=== PATIENT | male | born 1935 | race Caucasian/White ===

== ENCOUNTER 2018-07-21 17:59 | Emergency (ER) | payer OTHER ==
--- NOTE | 2018-07-21 18:48 | PDOC ---
History of Present Illness - General Chief Complaint: Burn Stated Complaint: Burn - History of Present Illness Initial Comments: Ana Maria Ovalle is an 82yo man with a PMH of HTN and non-Parkinson's movement disorder who presents with partial thickness mondragon to the b/l feet including the soles. He reports that the mondragon occurred 3 days ago on Thursday in the shower. He tried to turn the hot water down, but he accidentally turned the cold water completely off and had only hot water over his feet. He initially refused to go to see a doctor. Per family at bedside, Mr Ovalle's son called his PMD and silvadene was prescribed. Mr Ovalle reports that he has put it on the mondragon twice. He presented to the ED by ambulance today because family came to visit and thought he needed to have the mondragon evaluated by a doctor. Past History - Past Medical History Allergies/Adverse Reactions: Allergies Allergy/AdvReac Type Severity Reaction Status Date / Time Penicillins Allergy Unknown Verified 08/30/16 17:12 Home Medications: Ambulatory Orders Alprazolam [Xanax] 0 mg PO TID PRN 08/30/16 Aspirin [ASA -] 81 mg PO DAILY 08/30/16 Allopurinol 300 mg PO 09/01/16 Amlodipine Besylate [Norvasc -] 5 mg PO DAILY 09/01/16 Levofloxacin [Levaquin] 500 mg PO DAILY #2 tablet 09/03/16 Anemia: Yes Disorders: Yes (BPH, frq) HTN: Yes Psychiatric Problems: Yes (ANXIETY.) - Surgical History Abdominal Surgery: Yes Cholecystectomy: Yes Lung Surgery: Yes (?RT LUNG SX.) - Suicide/Smoking/Psychosocial Hx Smoking History: Never smoked Hx Alcohol Use: No Drug/Substance Use Hx: No Substance Use Type: None Hx Substance Use Treatment: No Review of Systems - Review of Systems Comments:: General: No fevers, no chills, no weight or appetite change, no malaise HEENT: No changes in vision, no changes in hearing, no congestion, no sore throat CV: No chest pain, no palpitations, no LE edema Pulm: No SOB, no cough, no wheezing GI: No nausea or vomiting, no change in bowel habits, no melena : No frequency, no urgency, no dysuria Musc: See HPI Skin: See HPI Endo: No excessive thirst, no heat/cold intolerance Heme: No unusual bruising or bleeding, no swollen glands Neuro: No syncope, no numbness/tingling, no focal weakness Vasc: No claudication Psych: No recent change in mood, no SI or HI *Physical Exam - Physical Exam Comments: General: Comfortable, no acute distress HEENT: PERRL, EOMI, MMM, voice normal, normal neck ROM, no LAD Cards: RRR, no murmur appreciated Pulm: Comfortable on room air, clear to auscultation bilaterally Abd: Soft, nontender, nondistended Ext: BLE 2+ pitting edema B/L feet with partial thickness mondragon, approximately 2% per foot (4-5% burn total). Large intact blisters filled with serous fluid to lateral right foot and medial left foot. Unroofed blisters with beefy red base to medial right and lateral left foot. Mondragon include both dorsal and plantar surfaces of b/l feet. Thin strip of unburned tissue in the middle of each sole prevents mondragon from being circumferential. Vasc: Extremities WWP. Neuro: A&Ox3, CN grossly intact, normal speech, motor/sensory grossly intact and symmetric Psych: Mood appropriate to situation Medical Decision Making - Medical Decision Making 07/21/18 19:45 Ana Maria Ovalle is an 82yo man with a history of HTN and movement disorder who presents with partial thickness mondragon to the b/l feet, including the soles, that total approximately 4% TBSA. - Patient is unable to walk as the mondragon include the soles of both feet. - Call placed to [facility] [place] - Given location of mondragon, may need specialized burn care. Concern that wound care at [facility] may not be comfortable caring for mondragon. - Spoke to Dr Morales at [facility]. Will accept for transfer. Would like feet wrapped in moist gauze for transfer - Oxycodone/acetaminophen ordered for pain. Seen and discussed with Dr Yu. Una Ricks PGY1 *DC/Admit/Observation/Transfer Diagnosis at time of Disposition: Partial thickness burn - Discharge Dispostion Disposition: TRANSFER ACUTE CARE/OTHER HOSP Condition at time of disposition: Stable - Referrals Referrals: Hunter Barrett [Primary Care Provider] - - Patient Instructions - Post Discharge Activity - Transfer to Acute Care Facility Receiving Facility: [facility]. Accepting Physician:: Dr Morales
[2018-07-21 19:48] VITALS: BMI 26.5
[2018-07-21] MEDS ORDERED: DIPHTH,PERTUSS(ACELL),TET 0.5 ML DISP.SYRIN IM ONE ×2 (20:08→20:30)
[2018-07-21] MEDS ORDERED: SODIUM CHLORIDE 0.9% 500 ML INFUS.BAG IV ONE (20:16)
--- NOTE | 2018-07-21 20:17 | PDOC ---
Attending Attestation - Resident Resident Name: MillicentUna - ED Attending Attestation I have performed the following: I have examined & evaluated the patient, The case was reviewed & discussed with the resident, I agree w/resident's findings & plan - HPI HPI: 07/21/18 20:13 82YOM, with a significant past medical history of HTN and Parkinsons, who presents to the emergency department with, bilateral feet mondragon from hot water. Allergies: Penicillins. Primary Care Physician: Dr. Barrett - Physicial Exam PE: 07/21/18 20:13 agree with PE as documented of note, <5% bilateral foot mondragon with 2nd degree mixed blisters and open wounds. erythematous and tender, no purulence, but serosanguinous discharge. over dorsum, lateral and medial feet. mildly tender. 2+ pulses. THOMAS CELESTE - Medical Decision Making 07/21/18 20:14 82 YOM with Parkinsons, HTN presenting with 2nd degree foot mondragon bilaterally, noncircumferential. <5% tetanus updated. xeroform and dressings placed needs burn cs and wound care, admission and transfer to center with subspecialty care, [facility] accepted, burn surgeon notified. basic labs, IV insert and analgesia administered awaiting transfer to [facility] for further care and admit 07/21/18 20:16
[2018-07-21 20:59] VITALS: BP 154/68; PULSE 99; TEMP 98.1
== END 2018-07-21 20:40 | disposition short-term general hospital (02) ==
LOC: JER 17:59 → EDBD 17:59 → JER 20:40
PROC: 3E0234Z Introduction of Serum, Toxoid and Vaccine into Muscle, Percutaneous Approach (ICD-10-PCS; principal; 2018-07-21)
PROC: 2W2TX4Z Dressing of Left Foot using Bandage (ICD-10-PCS; 2018-07-21)
PROC: 2W2SX4Z Dressing of Right Foot using Bandage (ICD-10-PCS; 2018-07-21)
DX: T25.022A Burn of unspecified degree of left foot, initial encounter (principal); T25.021A Burn of unspecified degree of right foot, initial encounter; X11.0XXA Contact with hot water in bath or tub, initial encounter; Y93.E1 Activity, personal bathing and showering; Y92.002 Bathroom of unspecified non-institutional (private) residence as the place of occurrence of the external cause; I10 Essential (primary) hypertension; N40.0 Benign prostatic hyperplasia without lower urinary tract symptoms; F41.9 Anxiety disorder, unspecified
CPT/HCPCS: 90715; 99282-25; 99283-25

== ENCOUNTER 2019-03-28 03:55 | Emergency (ER) | payer BC, OTHER ==
--- NOTE | 2019-03-28 04:27 | PDOC ---
History of Present Illness - General Chief Complaint: Injury Stated Complaint: FALL Time Seen by Provider: 03/28/19 04:26 - History of Present Illness Initial Comments: 03/28/19 04:26 Mr. Ovalle is an 83 yo male w/ pmh of HTN, anxiety, prostate issues, parkinson's disorder who presents from [place] after being found down earlier this evening. Mechanism of fall unclear and patient reporting headache at this time. Patient cannot elicit why he fell at this time. The patient denies chest pain and shortness of breath. Denies fever, chills, nausea, vomit, diarrhea and constipation. Denies dysuria, frequency, urgency and hematuria. Past History - Past Medical History Allergies/Adverse Reactions: Allergies Allergy/AdvReac Type Severity Reaction Status Date / Time Penicillins Allergy Unknown Verified 03/28/19 04:23 Home Medications: Ambulatory Orders Levofloxacin [Levaquin] 500 mg PO DAILY #2 tablet 09/03/16 L. Acidophilus/L.bulgaricus [Lactobacillus Tablet] 1 each PO BID 03/28/19 Multivitamins [Tab-A-Vit -] 1 tab PO DAILY 03/28/19 Oxybutynin Chloride [Ditropan -] 5 mg PO BID 03/28/19 Sulfamethoxazole/Trimethoprim [Bactrim Ds -] 1 tab PO BID #14 tablet 03/28/19 Temazepam [Restoril] 15 mg PO HS 03/28/19 Thiamine HCl [Vitamin B1] 100 mg PO DAILY 03/28/19 Anemia: Yes COPD: No Disorders: Yes (BPH, frq) HTN: Yes Psychiatric Problems: Yes (ANXIETY.) - Surgical History Abdominal Surgery: Yes Cholecystectomy: Yes Lung Surgery: Yes (?RT LUNG SX.) - Suicide/Smoking/Psychosocial Hx Smoking History: Unknown if ever smoked Have you smoked in the past 12 months: No Hx Alcohol Use: No Drug/Substance Use Hx: No Substance Use Type: None Hx Substance Use Treatment: No Review of Systems - Review of Systems Comments:: 03/28/19 04:27 GENERAL/CONSTITUTIONAL: No fever or chills. No weakness. HEAD, EYES, EARS, NOSE AND THROAT: +Headache s/p fall. No change in vision. No ear pain or discharge. No sore throat. CARDIOVASCULAR: No chest pain or shortness of breath RESPIRATORY: No cough, wheezing, or hemoptysis. GASTROINTESTINAL: No nausea, vomiting, diarrhea or constipation. GENITOURINARY: No dysuria, frequency, or change in urination. MUSCULOSKELETAL: No joint or muscle swelling or pain. No neck or back pain. SKIN: No rash NEUROLOGIC: No headache, vertigo, loss of consciousness, or change in strength/ sensation. ENDOCRINE: No increased thirst. No abnormal weight change HEMATOLOGIC/LYMPHATIC: No anemia, easy bleeding, or history of blood clots. ALLERGIC/IMMUNOLOGIC: No hives or skin allergy. *Physical Exam - Vital Signs Last Vital Signs Temp Pulse Resp BP Pulse Ox 98.2 F 95 H 16 142/73 97 03/28/19 04:00 03/28/19 04:00 03/28/19 04:00 03/28/19 04:00 03/28/19 04:00 - Physical Exam Comments: 03/28/19 04:27 GENERAL: Awake, alert, and fully oriented, in no acute distress HEAD: +Hematoma noted to forehead c/w history. EYES: PERRLA, EOMI, sclera anicteric, conjunctiva clear ENT: Auricles normal inspection, hearing grossly normal, nares patent, oropharynx clear without exudates. Moist mucosa NECK: Normal ROM, supple, no lymphadenopathy, JVD, or masses LUNGS: No distress, speaks full sentences, clear to auscultation bilaterally HEART: Regular rate and rhythm, normal S1 and S2, no murmurs, rubs or gallops, peripheral pulses normal and equal bilaterally. ABDOMEN: Soft, nontender, normoactive bowel sounds. No guarding, no rebound. No masses EXTREMITIES: Normal inspection, Normal range of motion, no edema. No clubbing or cyanosis. NEUROLOGICAL: Cranial nerves II through XII grossly intact. Normal speech, normal gait, no focal sensorimotor deficits SKIN: Warm, Dry, normal turgor, no rashes or lesions noted. ED Treatment Course - LABORATORY CBC & Chemistry Diagram: 03/28/19 05:31 03/28/19 05:31 Medical Decision Making - Medical Decision Making 03/28/19 05:19 Mr. Ovalle is an 83 yo male w/ pmh as described who presents for evaluation s/p unexplained fall. Patient will be evaluated for causes for and sequelae of fall w/ labs and CT. Patient further workup pending at this time. 03/28/19 06:10 Patient noted to have florid UTI as below. Patient started on bactrim for treatment in ED and Rx sent to patient pharmacy. 03/28/19 06:[address] negative. Discharging to home for further outpatient evaluation as needed. Laboratory Results - last 24 hr 03/28/19 03/28/19 03/28/19 05:31 05:31 05:31 WBC 7.7 RBC 4.54 Hgb 9.5 L Hct 29.2 L MCV 64.3 L MCH 20.9 L MCHC 32.5 RDW 20.0 H Plt Count 139 D MPV 8.5 Absolute Neuts (auto) 4.4 Neutrophils % 57.2 Lymphocytes % 31.5 D Monocytes % 8.0 Eosinophils % 2.6 Basophils % 0.7 Nucleated RBC % 0 PT with INR 13.20 H INR 1.12 H PTT (Actin FS) 32.5 Sodium 143 Potassium 4.1 Chloride 110 H Carbon Dioxide 29 Anion Gap 4 L BUN 26.6 H Creatinine 1.1 Est GFR (CKD-EPI)AfAm 72.07 Est GFR (CKD-EPI)NonAf 62.19 Random Glucose 102 Calcium 9.5 Total Bilirubin 0.6 AST 6 L ALT 13 Alkaline Phosphatase 80 Total Protein 6.4 Albumin 3.0 L Urine Color Urine Appearance Urine pH Ur Specific [place] Urine Protein Urine Glucose (UA) Urine Ketones Urine Blood Urine Nitrite Urine Bilirubin Urine Urobilinogen Ur Leukocyte Esterase Urine WBC (Auto) Urine RBC (Auto) Urine Casts (Auto) U Epithel Cells (Auto) Urine Bacteria (Auto) 03/28/19 05:50 WBC RBC Hgb Hct MCV MCH MCHC RDW Plt Count MPV Absolute Neuts (auto) Neutrophils % Lymphocytes % Monocytes % Eosinophils % Basophils % Nucleated RBC % PT with INR INR PTT (Actin FS) Sodium Potassium Chloride Carbon Dioxide Anion Gap BUN Creatinine Est GFR (CKD-EPI)AfAm Est GFR (CKD-EPI)NonAf Random Glucose Calcium Total Bilirubin AST ALT Alkaline Phosphatase Total Protein Albumin Urine Color Yellow Urine Appearance Cloudy Urine pH 7.0 Ur Specific [place] 1.012 Urine Protein 1+ H Urine Glucose (UA) Negative Urine Ketones Negative Urine Blood 2+ H Urine Nitrite Negative Urine Bilirubin Negative Urine Urobilinogen 0.2 Ur Leukocyte Esterase 3+ H Urine WBC (Auto) 589 Urine RBC (Auto) 32 Urine Casts (Auto) 3 U Epithel Cells (Auto) 0.1 Urine Bacteria (Auto) 20.8 *DC/Admit/Observation/Transfer Diagnosis at time of Disposition: Fall Qualifiers: Encounter type: initial encounter Qualified Code(s): W19.XXXA - Unspecified fall, initial encounter UTI (urinary tract infection) Qualifiers: Urinary tract infection type: site unspecified Hematuria presence: without hematuria Qualified Code(s): N39.0 - Urinary tract infection, site not specified - Prescriptions Prescriptions: Sulfamethoxazole/Trimethoprim [Bactrim Ds -] 1 tab PO BID #14 tablet - Referrals Referrals: Garcia Don MD [Primary Care Provider] - - Patient Instructions Printed Discharge Instructions: How to Prevent Falls Additional Instructions: Ana Maria was evaluated today in the ER and found to have a UTI. We started him on antibiotics and sent a prescription to his pharmacy. Please take all medications as proscribed. Follow-up with primary care provider later this week for further evaluation. Return to ER if any fever, chills, altered mental status , or other concerning symptoms. - Post Discharge Activity
--- NOTE | 2019-03-28 04:34 | PDOC ---
Attending Attestation - Resident Resident Name: Stephen Everett - ED Attending Attestation I have performed the following: I have examined & evaluated the patient, The case was reviewed & discussed with the resident, I agree w/resident's findings & plan - HPI HPI: 03/28/19 05:29 Pt fell at the NH and she has hematoma to the right forehead. He has no complaints other than right head pain. Pt has no cspine pain. Pt has no other complaints. Moving all extremities. Pt speaks in telugu and answers questions appropriately; however at times he speaks in norwegian. - Physicial Exam PE: 03/28/19 05:31 Agree with resident exam. Pt has a hematoma/red area where his right forehead struck the floor. - Medical Decision Making 03/28/19 05:[address] head and c spine and we will send basic labs and UA and if all is well he will return to the [place],
[2019-03-28] MEDS ORDERED: ACETAMINOPHEN 1000 MG/100 ML VIAL (NON FORMULARY) IVPB ONE (04:56)
[2019-03-28 04:58] VITALS: TEMP 98.2; BMI 25.0
[2019-03-28] MEDS ORDERED: ACETAMINOPHEN INJECTION 100 ML IVPB ONE (05:20)
[2019-03-28 05:46] LABS: BASO % 0.7 % (0-2.0); HEMATOCRIT 29.2 % (35.4-49); HEMOGLOBIN 9.5 GM/dL (11.7-16.9); MEAN CELL VOLUME 64.3 fl (80-96); WHITE BLOOD COUNT 7.7 K/mm3 (4.0-10.0)
[2019-03-28 05:58] LABS: INR 1.12 (0.83-1.09); PROTHROMBIN TIME (PATIENT) 13.2 SEC (9.7-13.0)
[2019-03-28 06:01] LABS: ACTIVATED PTT 32.5 SECONDS (25.2-36.5)
[2019-03-28 06:02] LABS: EPI CELLS 0.1 /HPF (0-5/HPF); HYALINE CASTS 3 /lpf (0-8); URINE APPEARANCE CLOUDY; URINE BACTERIA 20.8 /hpf (NEGATIVE); URINE BILIRUBIN NEGATIVE (NEGATIVE); URINE COLOR YELLOW; URINE GLUCOSE (UA) NEGATIVE (NEGATIVE); URINE KETONE NEGATIVE (NEGATIVE); URINE LEUK ESTERASE 3+ (NEGATIVE); URINE NITRITE NEGATIVE (NEGATIVE); URINE PROTEIN 1+ (NEGATIVE); URINE RBC 32 /hpf (0-4); URINE UROBILINOGEN 0.2 mg/dL (0.2-1.0); URINE WBC 589 /hpf (0-5)
[2019-03-28 06:03] LABS: EOS % 2.6 % (0-4.5); LYMPH % 31.5 % (8-40); MCH 20.9 pg (25.7-33.7); MCHC 32.5 g/dl (32.0-35.9); MEAN PLT VOLUME 8.5 fl (7.5-11.1); NEUT % 57.2 % (42.8-82.8); PLATELET COUNT 139 K/MM3 (134-434); RBC 4.54 M/mm3 (4.00-5.60)
[2019-03-28] MEDS ORDERED: SULFAMETHOXAZOLE/TRIMETHOPRIM 800MG/160MG D.S. TABLET PO ONE (06:08)
[2019-03-28 06:09] LABS: ALK PHOS 80 U/L (45-117); ANION GAP 4 MMOL/L (8-16); BILIRUBIN,TOTAL 0.6 mg/dL (0.2-1); BLOOD UREA NITROGEN 26.6 mg/dL (7-18); CALCIUM 9.5 mg/dL (8.5-10.1); CHLORIDE 110 mmol/L (98-107); CO2 29 mmol/L (21-32); CREATININE 1.1 mg/dL (0.55-1.3); GLUCOSE,RANDOM 102 mg/dL (74-106); POTASSIUM 4.1 mmol/L (3.5-5.1); SGOT/AST 6 U/L (15-37); SGPT/ALT 13 U/L (13-61); SODIUM 143 mmol/L (136-145); TOT PROT 6.4 g/dl (6.4-8.2)
[2019-03-28] MEDS ORDERED: SULFAMETHOXAZOLE/TRIMETHOPRIM 800MG/160MG D.S. TABLET ONE (06:59)
[2019-03-28 08:40] VITALS: PULSE 88
[2019-03-28 09:47] VITALS: BP 159/68
--- NOTE | 2019-03-28 11:50 | EKG ---
Test Reason : Blood Pressure : / mmHG Vent. Rate : 087 BPM Atrial Rate : 087 BPM P-R Int : 202 ms QRS Dur : 088 ms QT Int : 336 ms P-R-T Axes : 060 -06 027 degrees QTc Int : 404 ms NORMAL SINUS RHYTHM INFERIOR INFARCT , AGE UNDETERMINED ABNORMAL ECG WHEN COMPARED WITH ECG OF 30-AUG-2016 17:19, NO SIGNIFICANT CHANGE WAS FOUND Confirmed by ROWENA MCFARLAND MD ([id number]) on 03/28/2019 11:50:00 AM Referred By: Confirmed By:ROWENA MCFARLAND MD
[2019-03-28 14:51] LABS: ANISOCYTOSIS 1+; MACROCYTOSIS 0; OVALOCYTE 1+; PLATELET ESTIMATE DECREASED
== END 2019-03-28 08:39 ==
LOC: JER 03:55
DX: N39.0 Urinary tract infection, site not specified (principal); R51 Headache; W19.XXXA Unspecified fall, initial encounter; Y93.89 Activity, other specified; Y92.122 Bedroom in nursing home as the place of occurrence of the external cause; Y99.8 Other external cause status; I10 Essential (primary) hypertension; F41.9 Anxiety disorder, unspecified; G20 Parkinson's disease; D64.9 Anemia, unspecified; N40.0 Benign prostatic hyperplasia without lower urinary tract symptoms
CPT/HCPCS: 36415; 70450-TC; 72125-TC; 80053; 81003; 82550; 84484; 85025; 85610; 85730; 87086; 93005; 93010; 99283-25; J0131

== ENCOUNTER 2019-06-11 22:34 | Emergency (ER) | payer BC, OTHER ==
--- NOTE | 2019-06-11 22:43 | PDOC ---
History of Present Illness - General Stated Complaint: R/O STROKE Time Seen by Provider: 06/11/19 22:42 History Source: Patient Exam Limitations: No Limitations - History of Present Illness Initial Comments: 06/11/19 23:52 Sources: Pt, Dr. Don, [place] Nurse HPI: 83yo M presenting from [place] for hypertensive episode (no HTN at baseline) with L arm 200/110, R arm 50 pts lower, with dizziness during episode. Sent in by patient PCP for head CT to r/o bleed. Given 5mg lisinopril with resolution of his hypertension. Patient without complaint on arrival - says his left arm hurts with use and has been a chronic pain for the past 3 years. He has had difficulty lifting his legs (L more than R) for two years. Denies any new focal deficits - no weakness / numbness / tingling / difficulty chewing or speaking. Main complaints is an infection in his left eye for which he is taking antibiotic eye drops. Denies chest pain, difficulty breathing, cough, fevers, chills, nausea / vomiting, pain with urination (multiple prior UTIs per chart review) All: PCNs MedS: per chart PMH: per chart PSH: per chart Shx: lives in [place] NIH Stroke Scale - Initial Evaluation Level of consciousness: Alert Ask patient the month and their age: Answers both correctly Ask patient to open & close eyes; make fist and let go: Obeys both correctly Best gaze (horizontal eye movement): Normal Visual field testing: No visual field loss Facial paresis (Show teeth/raise eyebrows/close eyes tight): Normal symmetrical movement Motor Function: Left Arm: Normal Motor Function: Right Arm: Normal (extends arm 90 (or 45) degrees for 10 seconds without drift Motor Function: Left Leg: Drift Motor Function: Right Leg: Normal (extends leg 30 degrees for 5 seconds without drift) Limb Ataxia: No ataxia Sensory(Use pinprick test arms,legs,trunk,face/side to side): Normal Best language (Describe picture, name items, read sentences): No Aphasia Dysarthria (read several words): Normal articulation Extinction and Inattention: No abnormality (patient with chronic LE weakness L > R) - Total Score NIH Stroke Scale Score: 1 Past History - Travel Traveled outside of the country in the last 30 days: No Close contact w/someone who was outside of country & ill: No - Past Medical History Allergies/Adverse Reactions: Allergies Allergy/AdvReac Type Severity Reaction Status Date / Time Penicillins Allergy Unknown Verified 06/11/19 22:53 Home Medications: Ambulatory Orders Levofloxacin [Levaquin] 500 mg PO DAILY #2 tablet 09/03/16 L. Acidophilus/L.bulgaricus [Lactobacillus Tablet] 1 each PO BID 03/28/19 Multivitamins [Tab-A-Vit -] 1 tab PO DAILY 03/28/19 Oxybutynin Chloride [Ditropan -] 5 mg PO BID 03/28/19 Sulfamethoxazole/Trimethoprim [Bactrim Ds -] 1 tab PO BID #14 tablet 03/28/19 Temazepam [Restoril] 15 mg PO HS 03/28/19 Thiamine HCl [Vitamin B1] 100 mg PO DAILY 03/28/19 Anemia: Yes COPD: No Disorders: Yes (BPH, frq) HTN: Yes Psychiatric Problems: Yes (ANXIETY.) - Surgical History Abdominal Surgery: Yes Cholecystectomy: Yes Lung Surgery: Yes (?RT LUNG SX.) - Psycho Social/Smoking Cessation Hx Smoking History: Never smoked Have you smoked in the past 12 months: No Hx Alcohol Use: No Drug/Substance Use Hx: No Substance Use Type: None Hx Substance Use Treatment: No Review of Systems - Review of Systems Able to Perform ROS?: Yes Is the patient limited Cook Islander proficient: Yes Constitutional: No: Chills, Diaphoresis, Fever HEENTM: Yes: See HPI (eye problems with current outpatient workup), Blurred Vision, Recent change in vision. No: Nose Congestion, Throat Swelling Respiratory: No: Cough, Orthopnea, Shortness of Breath, Wheezing Cardiac (ROS): No: Chest Pain, Edema, Irregular Heart Rate, Palpitations, Syncope, Chest Tightness ABD/GI: No: Constipated, Diarrhea, Nausea, Vomiting, Indigestion : Yes: Incontinence (baseline). No: Burning, Dysuria, Discharge, Frequency Musculoskeletal: Yes: See HPI, Muscle Pain (left arm, with use, for 3 years), Muscle Weakness (bilateral lower legs for 2 years). No: Back Pain Integumentary: No: Bruising, Change in Color, Pruritus, Rash Neurological: Yes: Pre-Existing Deficit (per HPI). No: Headache, Numbness, Paresthesia, Tingling, Weakness Psychiatric: No: Stressors, Emotional Problems, Mood Swings, Change in Appetite Endocrine: No: Excessive Sweating, Flushing, Change in Weight Hematologic/Lymphatic: No: Anemia, Blood Clots, Easy Bleeding All Other Systems: Reviewed and Negative *Physical Exam - Physical Exam Comments: 06/12/19 00:31 Vitals reviewed, AFVSS, systolic pressure 127 R arm, 138 in L Elderly man, appears stated age, no acute distress MMM, EOMI, trachea midline, normal morphologies, left eye with injected conjunctiva with surrounding pus RRR, nl s1s2, no murmurs CTABL, normal WOB, no wheezes / rales / rhonchi Soft, nontender, nondistended WWP, no clubbing / cyanosis / edema Alert and oriented x3, good strength and sensation in BL UE, reduced strength LE c/w reported baseline, CN 2-12 intact, normal [id number], no pronator drift, normal articulation, normal fund of knowledge and naming ED Treatment Course - LABORATORY CBC & Chemistry Diagram: 06/12/19 00:34 06/12/19 00:34 Medical Decision Making - Medical Decision Making 06/11/19 23:57 83yo M presenting from [place] for hypertensive episode (no HTN at baseline) with L arm 200/110, R arm 50 pts lower, with dizziness during episode. Patient asymptomatic in the department with normal neuro exam and 127/44 R and 138/53 L. 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 Thank you for coming in. - Post Discharge Activity
[2019-06-11 22:58] VITALS: BP 156/68; PULSE 74; TEMP 98.3; BMI 25.1
--- NOTE | 2019-06-11 23:00 | PDOC ---
Attending Attestation - Resident Resident Name: William Carson - ED Attending Attestation I have performed the following: I have examined & evaluated the patient, The case was reviewed & discussed with the resident, I agree w/resident's findings & plan, Exceptions are as noted - HPI HPI: 06/12/19 01:00 Mr. Ovalle is an 83 yo M presenting via ems for elevated blood pressure Per Dr. Don [place] Nurse who was sent to the ER for evaluation of elevated blood pressure and possible stroke Per pt PMD, apparently had an episode where the blood pressure in his left arm was 200/100 and right arm was significantly lower Pt apparently was dizzy at the time Pt was sent in for head CT to r/o bleed. Pt was given Lisinopril 5mg po with resolution of his hypertension. Pt reports back pain (lower back pain) with ambulation or movement Pt denies chest pain or palpitations Pt has had difficulty lifting his legs (L more than R) for two years. No new weakness, numbness, tingling, slurred speech 06/12/19 01:11 - Physicial Exam PE: 06/12/19 01:08 GENERAL: The patient is in no acute distress, answers questions appropriately. HEENT: bilateral eye mucoid drainage, no scleral injection, Moist mucous membranes. NECK: Normal range of motion, supple LUNGS: Breath sounds equal, clear to auscultation bilaterally. HEART: Regular rate and rhythm, normal S1 and S2 without murmur, rub or gallop. ABDOMEN: Soft, nontender, normoactive bowel sounds. EXTREMITIES: Normal range of motion, no edema. NEUROLOGICAL: Cranial nerves II through XII grossly intact. Normal speech. No focal neurological deficits. SKIN: Warm, Dry, normal turgor, no rashes or lesions noted. - Medical Decision Making 06/12/19 01:12 Laboratory Tests 06/12/19 06/12/19 00:30 00:34 WBC 7.4 Hgb 9.9 L Hct 31.1 L Plt Count 144 Urine Glucose (UA) Negative Urine Ketones Negative Urine Blood Trace Urine Nitrite Negative Ur Leukocyte Esterase 3+ H Urine WBC (Auto) 476 Urine RBC (Auto) 12 U Epithel Cells (Auto) 0.1 Urine Bacteria (Auto) 20.8 06/12/19 01:18 EKG: NSR rate of 71 bpm, axis nml, intervals nml, no st elevation or depression , t waves upright, q wave III CT head pending CXR pending 06/12/19 01:19 06/12/19 01:37 Laboratory Tests 06/12/19 00:34 BUN 28.4 H Creatinine 1.0 Creatine Kinase 36 Troponin I < 0.02 06/12/19 01:40 CT: possible peticheal hemorrhage vs calcification at the vertex Will review old CT 06/12/19 02:13 Received another call from radiology re: this patient's CT Area of peticheal hemorrhage seen before was likely volume averaging Awaiting official read (After old CT sent to Imaging confidential secretary) Pt signed out to Dr. Salazar
[2019-06-12 00:51] LABS: EPI CELLS 0.1 /HPF (0-5/HPF); HYALINE CASTS 2 /lpf (0-8); URINE APPEARANCE CLOUDY; URINE BACTERIA 20.8 /hpf (NEGATIVE); URINE BILIRUBIN NEGATIVE (NEGATIVE); URINE COLOR YELLOW; URINE GLUCOSE (UA) NEGATIVE (NEGATIVE); URINE KETONE NEGATIVE (NEGATIVE); URINE LEUK ESTERASE 3+ (NEGATIVE); URINE NITRITE NEGATIVE (NEGATIVE); URINE PROTEIN 1+ (NEGATIVE); URINE RBC 12 /hpf (0-4); URINE UROBILINOGEN 0.2 mg/dL (0.2-1.0); URINE WBC 476 /hpf (0-5)
[2019-06-12 01:04] LABS: BASO % 0.9 % (0-2.0); HEMATOCRIT 31.1 % (35.4-49); HEMOGLOBIN 9.9 GM/dL (11.7-16.9); LYMPH % 33.3 % (8-40); MCH 21.2 pg (25.7-33.7); MCHC 31.7 g/dl (32.0-35.9); MEAN CELL VOLUME 66.8 fl (80-96); MEAN PLT VOLUME 8.4 fl (7.5-11.1); MONO % 6.5 % (3.8-10.2); NEUT % 55.3 % (42.8-82.8); PLATELET COUNT 144 K/MM3 (134-434); RBC 4.65 M/mm3 (4.00-5.60); RDW 19.8 % (11.9-15.9); WHITE BLOOD COUNT 7.4 K/mm3 (4.0-10.0)
[2019-06-12 01:26] LABS: ALBUMIN 3.2 g/dl (3.4-5.0); ALK PHOS 84 U/L (45-117); ANION GAP 5 MMOL/L (8-16); BILIRUBIN,TOTAL 0.6 mg/dL (0.2-1); BLOOD UREA NITROGEN 28.4 mg/dL (7-18); CALCIUM 9.5 mg/dL (8.5-10.1); CHLORIDE 111 mmol/L (98-107); CO2 29 mmol/L (21-32); GLUCOSE,RANDOM 99 mg/dL (74-106); POTASSIUM 4.1 mmol/L (3.5-5.1); SGOT/AST 10 U/L (15-37); SGPT/ALT 10 U/L (13-61); SODIUM 145 mmol/L (136-145); TOT PROT 6.3 g/dl (6.4-8.2)
[2019-06-12 02:49] LABS: ANISOCYTOSIS 1+
--- NOTE | 2019-06-12 10:31 | EKG ---
Test Reason : Blood Pressure : / mmHG Vent. Rate : 071 BPM Atrial Rate : 071 BPM P-R Int : 176 ms QRS Dur : 096 ms QT Int : 364 ms P-R-T Axes : 066 006 041 degrees QTc Int : 395 ms NORMAL SINUS RHYTHM CANNOT RULE OUT ANTERIOR INFARCT , AGE UNDETERMINED ABNORMAL ECG WHEN COMPARED WITH ECG OF 28-MAR-2019 05:39, NO SIGNIFICANT CHANGE WAS FOUND Confirmed by MD MARIZA, PETER ([id number]) on 06/12/2019 10:30:45 AM Referred By: Confirmed By:PETER DAWKINS MD
== END 2019-06-12 05:16 ==
LOC: JER 22:34
DX: I10 Essential (primary) hypertension (principal); N40.1 Benign prostatic hyperplasia with lower urinary tract symptoms; R35.0 Frequency of micturition; D64.9 Anemia, unspecified; F41.9 Anxiety disorder, unspecified; Z90.49 Acquired absence of other specified parts of digestive tract; Z88.0 Allergy status to penicillin
CPT/HCPCS: 36415; 70450-TC; 71045-TC-FY; 80053; 81003; 82550; 84484; 85025; 87086; 93005; 93010; 99283-25

== ENCOUNTER 2022-04-30 19:32 | Inpatient (IN) | payer BC, OTHER ==
[2022-04-30] MEDS ORDERED: ACETAMINOPHEN 1000 MG/100 ML BAG IVPB ONE (20:43)
[2022-04-30 21:16] LABS: BASO % 0.8 % (0-2.0); EOS % 0.8 % (0-4.5); HEMATOCRIT 34.2 % (35.4-49); HEMOGLOBIN 10.6 GM/dL (11.7-16.9); LYMPH % 10.8 % (8-40); MCHC 30.8 g/dl (32.0-35.9); MEAN CELL VOLUME 63.4 fl (80-96); MEAN PLT VOLUME 8.3 fl (7.5-11.1); MONO % 8.4 % (3.8-10.2); NEUT % 79.2 % (42.8-82.8); PLATELET COUNT 168 10^3/uL (134-434); RBC 5.39 M/mm3 (4.00-5.60); RDW 19.7 % (11.9-15.9); WHITE BLOOD COUNT 12.4 K/mm3 (4.0-10.0)
[2022-04-30 21:23] LABS: INR 1.16 (0.83-1.09); PROTHROMBIN TIME (PATIENT) 13.4 SEC (9.7-13.0)
[2022-04-30 21:26] LABS: ACTIVATED PTT 32.6 SECONDS (25.2-36.5)
[2022-04-30] MEDS ORDERED: ACETAMINOPHEN INJECTION 100 ML IVPB ONE (21:33)
[2022-04-30 21:42] LABS: MCH 19.6 pg (25.7-33.7)
[2022-04-30 21:45] LABS: CALCIUM 9.5 mg/dL (8.5-10.1)
[2022-04-30 21:46] LABS: ALBUMIN 3.2 g/dl (3.4-5.0); BLOOD UREA NITROGEN 24.8 mg/dL (7-18)
[2022-04-30 21:47] LABS: ANISOCYTOSIS 2+; MACROCYTOSIS 0; OVALOCYTE 1+; TARGET CELLS 1+
[2022-04-30 21:49] LABS: CREATININE 1.1 mg/dL (0.55-1.3)
[2022-04-30 21:50] LABS: BILIRUBIN,TOTAL 0.8 mg/dL (0.2-1)
[2022-04-30 21:51] LABS: TOT PROT 6.5 g/dl (6.4-8.2)
[2022-04-30 22:52] LABS: MAGNESIUM 1.9 mg/dL (1.8-2.4)
[2022-04-30 22:55] LABS: PHOSPHOROUS 2.4 mg/dL (2.5-4.9)
[2022-05-01] MEDS ORDERED: oxyCODONE HCL 5 MG TABLET PO PRN (01:32)
[2022-05-01] MEDS ORDERED: NAPH,MB-DB/K PH,MBDB POWDER PACKET PO ONE (03:03)
[2022-05-01] MEDS ORDERED: LOSARTAN POTASSIUM 50 MG TABLET PO SCH ×3 (03:15→22:00)
[2022-05-01] MEDS ORDERED: LIDOCAINE 5% TOPICAL PATCH TP ONE (05:01)
[2022-05-01] MEDS: ACETAMINOPHEN 1000 MG/100 ML BAG IVPB SCH ×3 (05:25→17:33)
[2022-05-01] MEDS ORDERED: PATIENT'S OWN MEDICATION (NON-FORMULARY) (Hydralazine Hcl [Hydralazine Hcl] 100 MG Tablet) PO SCH (07:00)
[2022-05-01 09:14] LABS: EPI CELLS 4 /uL (0-25.1); HYALINE CASTS 6 /uL (0-3.1); PH,URINE 5.5 (5.0-8.0); URINE APPEARANCE CLOUDY; URINE BACTERIA 7639 /uL (0-1359); URINE BILIRUBIN NEGATIVE (NEGATIVE); URINE COLOR YELLOW; URINE GLUCOSE (UA) NEGATIVE (NEGATIVE); URINE KETONE NEGATIVE (NEGATIVE); URINE LEUK ESTERASE 3+ (NEGATIVE); URINE NITRITE NEGATIVE (NEGATIVE); URINE PROTEIN 1+ (NEGATIVE); URINE RBC 13 /uL (0-23.9); URINE UROBILINOGEN 0.2 mg/dL (0.2-1.0); URINE WBC 1729 /uL (0-25.8)
[2022-05-01] MEDS ORDERED: hydrALAZINE HCL 50 MG TABLET (FP) PO SCH (10:00)
[2022-05-01] MEDS ORDERED: ENOXAPARIN NA (PORCINE) 40 MG/0.4 ML DISP.SYRIN SQ SCH (10:00)
[2022-05-01] MEDS ORDERED: LIDOCAINE 5% TOPICAL PATCH TP SCH (10:00)
[2022-05-01 10:41] LABS: BASO % 1.1 % (0-2.0); EOS % 2.5 % (0-4.5); HEMOGLOBIN 9.7 GM/dL (11.7-16.9); LYMPH % 20.1 % (8-40); MCH 20.6 pg (25.7-33.7); MCHC 32.4 g/dl (32.0-35.9); MEAN CELL VOLUME 63.5 fl (80-96); MEAN PLT VOLUME 8.1 fl (7.5-11.1); MONO % 10.5 % (3.8-10.2); NEUT % 65.8 % (42.8-82.8); PLATELET COUNT 151 10^3/uL (134-434); RBC 4.72 M/mm3 (4.00-5.60); RDW 19.8 % (11.9-15.9); WHITE BLOOD COUNT 9.7 K/mm3 (4.0-10.0)
[2022-05-01 11:09] LABS: ALBUMIN 2.8 g/dl (3.4-5.0); CALCIUM 8.8 mg/dL (8.5-10.1)
[2022-05-01 11:10] LABS: MAGNESIUM 1.9 mg/dL (1.8-2.4)
[2022-05-01 11:12] LABS: CREATININE 0.9 mg/dL (0.55-1.3); PHOSPHOROUS 2.6 mg/dL (2.5-4.9)
[2022-05-01 11:14] LABS: TOT PROT 5.9 g/dl (6.4-8.2)
[2022-05-01] MEDS ORDERED: LIDOCAINE PATCH REMOVAL MC ONE (18:00)
[2022-05-01] MEDS ORDERED: ceFAZolin SODIUM 1 GM VIAL IVPB ONE (19:36)
[2022-05-01] MEDS ORDERED: TRANEXAMIC ACID 1000 MG/10 ML VIAL ONE (19:44)
[2022-05-01] MEDS ORDERED: ONDANSETRON 4 MG/2 ML VIAL IVPUSH PRN (21:27)
[2022-05-01] MEDS ORDERED: LIDOCAINE PATCH REMOVAL MC SCH (22:00)
[2022-05-01] MEDS: LIDOCAINE PATCH REMOVAL MC SCH (22:23)
[2022-05-01] MEDS ORDERED: ACETAMINOPHEN 1000 MG/100 ML BAG IVPB SCH (23:00)
[2022-05-01] MEDS: DOCUSATE SODIUM 100 MG CAPSULE (FP) PO SCH (23:10)
[2022-05-01] MEDS: hydrALAZINE HCL 50 MG TABLET (FP) PO SCH (23:10)
[2022-05-01] MEDS ORDERED: LORazepam 2 MG/ML SDV VIAL IVPB ONE (23:19)
[2022-05-02] MEDS: CEFAZOLIN 1 GM in DEXTROSE 5%-WATER - 50 ML IVPB SCH ×3 (01:20→19:26)
[2022-05-02] MEDS: DOCUSATE SODIUM 100 MG CAPSULE (FP) PO SCH ×3 (07:03→21:14)
[2022-05-02] MEDS: LOSARTAN POTASSIUM 50 MG TABLET PO SCH (07:03)
[2022-05-02] MEDS ORDERED: LIDOCAINE 5% TOPICAL PATCH TP SCH (10:00)
[2022-05-02] MEDS: hydrALAZINE HCL 50 MG TABLET (FP) PO SCH ×3 (10:19→21:14)
[2022-05-02] MEDS: CHOLECALCIFEROL (VIT D3) 1,000 UNIT (25 MCG) TABLET PO SCH ×2 (10:22→10:27)
[2022-05-02] MEDS: LIDOCAINE 5% TOPICAL PATCH TP SCH (10:28)
[2022-05-02] MEDS: ENOXAPARIN NA (PORCINE) 40 MG/0.4 ML DISP.SYRIN SQ SCH (10:29)
[2022-05-02 11:25] LABS: EOS % 0.9 % (0-4.5); HEMATOCRIT 33.4 % (35.4-49); HEMOGLOBIN 10.6 GM/dL (11.7-16.9); LYMPH % 8.4 % (8-40); MCH 21.3 pg (25.7-33.7); MCHC 31.6 g/dl (32.0-35.9); MEAN CELL VOLUME 67.3 fl (80-96); MEAN PLT VOLUME 8.4 fl (7.5-11.1); MONO % 11.1 % (3.8-10.2); NEUT % 78.6 % (42.8-82.8); PLATELET COUNT 138 10^3/uL (134-434); RBC 4.96 M/mm3 (4.00-5.60); RDW 22.9 % (11.9-15.9); WHITE BLOOD COUNT 13.9 K/mm3 (4.0-10.0)
[2022-05-02 11:53] LABS: CALCIUM 8.8 mg/dL (8.5-10.1)
[2022-05-02 11:54] LABS: ALBUMIN 2.9 g/dl (3.4-5.0); BLOOD UREA NITROGEN 28.3 mg/dL (7-18)
[2022-05-02 11:57] LABS: CREATININE 1.1 mg/dL (0.55-1.3)
[2022-05-02 11:59] LABS: BILIRUBIN,TOTAL 1.8 mg/dL (0.2-1); TOT PROT 6.1 g/dl (6.4-8.2)
[2022-05-02] MEDS ORDERED: SODIUM CHLORIDE 0.45% 1,000 ML IV SCH (14:30)
[2022-05-02] MEDS ORDERED: ceFAZolin SODIUM 1 GM VIAL ONE (19:23)
[2022-05-02] MEDS: LIDOCAINE PATCH REMOVAL MC SCH ×2 (21:15)
[2022-05-02] MEDS ORDERED: LIDOCAINE PATCH REMOVAL MC SCH (22:00)
[2022-05-02] MEDS ORDERED: LORazepam 2 MG/ML SDV VIAL IVPB ONE (22:04)
[2022-05-03] MEDS: DOCUSATE SODIUM 100 MG CAPSULE (FP) PO SCH ×3 (06:09→23:14)
[2022-05-03] MEDS: LOSARTAN POTASSIUM 50 MG TABLET PO SCH (06:09)
[2022-05-03 08:57] LABS: HEMATOCRIT 30.4 % (35.4-49); HEMOGLOBIN 9.6 GM/dL (11.7-16.9); MCH 21.4 pg (25.7-33.7); MCHC 31.6 g/dl (32.0-35.9); MEAN CELL VOLUME 67.5 fl (80-96); MEAN PLT VOLUME 8.2 fl (7.5-11.1); PLATELET COUNT 124 10^3/uL (134-434); RDW 23.9 % (11.9-15.9); WHITE BLOOD COUNT 14.5 K/mm3 (4.0-10.0)
[2022-05-03 09:25] LABS: CALCIUM 9.1 mg/dL (8.5-10.1)
[2022-05-03 09:26] LABS: ALBUMIN 2.8 g/dl (3.4-5.0); BLOOD UREA NITROGEN 29.7 mg/dL (7-18)
[2022-05-03 09:29] LABS: CREATININE 0.9 mg/dL (0.55-1.3)
[2022-05-03 09:30] LABS: BILIRUBIN,TOTAL 0.9 mg/dL (0.2-1)
[2022-05-03] MEDS: LIDOCAINE 5% TOPICAL PATCH TP SCH (10:04)
[2022-05-03] MEDS: CHOLECALCIFEROL (VIT D3) 1,000 UNIT (25 MCG) TABLET PO SCH (10:04)
[2022-05-03] MEDS: ENOXAPARIN NA (PORCINE) 40 MG/0.4 ML DISP.SYRIN SQ SCH (10:04)
[2022-05-03] MEDS: hydrALAZINE HCL 50 MG TABLET (FP) PO SCH ×2 (10:04→22:00)
[2022-05-03] MEDS: LIDOCAINE PATCH REMOVAL MC SCH (23:14)
[2022-05-04] MEDS: LOSARTAN POTASSIUM 50 MG TABLET PO SCH (07:37)
[2022-05-04] MEDS: DOCUSATE SODIUM 100 MG CAPSULE (FP) PO SCH ×3 (07:37→23:04)
[2022-05-04] MEDS: LIDOCAINE PATCH REMOVAL MC SCH ×2 (07:50→23:04)
[2022-05-04 09:54] LABS: BASO % 0.3 % (0-2.0); HEMATOCRIT 30.5 % (35.4-49); HEMOGLOBIN 9.6 GM/dL (11.7-16.9); LYMPH % 5.2 % (8-40); MCH 21.1 pg (25.7-33.7); MCHC 31.5 g/dl (32.0-35.9); MEAN CELL VOLUME 66.8 fl (80-96); MEAN PLT VOLUME 8.4 fl (7.5-11.1); MONO % 8.6 % (3.8-10.2); NEUT % 85.9 % (42.8-82.8); PLATELET COUNT 173 10^3/uL (134-434); RBC 4.56 M/mm3 (4.00-5.60); RDW 23.6 % (11.9-15.9); WHITE BLOOD COUNT 19.6 K/mm3 (4.0-10.0)
[2022-05-04] MEDS: CHOLECALCIFEROL (VIT D3) 1,000 UNIT (25 MCG) TABLET PO SCH (10:01)
[2022-05-04] MEDS: hydrALAZINE HCL 50 MG TABLET (FP) PO SCH ×2 (10:01→23:03)
[2022-05-04 10:07] LABS: ALBUMIN 2.7 g/dl (3.4-5.0); BLOOD UREA NITROGEN 40.9 mg/dL (7-18); CALCIUM 9.4 mg/dL (8.5-10.1)
[2022-05-04 10:10] LABS: CREATININE 0.8 mg/dL (0.55-1.3)
[2022-05-04 10:12] LABS: BILIRUBIN,TOTAL 0.8 mg/dL (0.2-1); TOT PROT 6.2 g/dl (6.4-8.2)
[2022-05-04] MEDS: LIDOCAINE 5% TOPICAL PATCH TP SCH (10:12)
[2022-05-04] MEDS: ENOXAPARIN NA (PORCINE) 40 MG/0.4 ML DISP.SYRIN SQ SCH (10:12)
[2022-05-04] MEDS: CEFTRIAXONE 1 GM in DEXTROSE 5%-WATER - 50 ML IVPB SCH (16:32)
[2022-05-04] MEDS: QUEtiapine FUMARATE 25 MG TABLET PO SCH (23:03)
[2022-05-05] MEDS ORDERED: ACETAMINOPHEN 1000 MG/100 ML BAG IVPB ONE (00:16)
[2022-05-05] MEDS: DOCUSATE SODIUM 100 MG CAPSULE (FP) PO SCH ×3 (05:24→22:45)
[2022-05-05] MEDS: QUEtiapine FUMARATE 25 MG TABLET PO SCH ×2 (05:26→22:45)
[2022-05-05] MEDS: hydrALAZINE HCL 50 MG TABLET (FP) PO SCH ×3 (05:26→22:45)
[2022-05-05] MEDS: LOSARTAN POTASSIUM 50 MG TABLET PO SCH (08:01)
[2022-05-05] MEDS: LIDOCAINE 5% TOPICAL PATCH TP SCH (10:17)
[2022-05-05] MEDS: CEFTRIAXONE 1 GM in DEXTROSE 5%-WATER - 50 ML IVPB SCH (10:18)
[2022-05-05] MEDS: ENOXAPARIN NA (PORCINE) 40 MG/0.4 ML DISP.SYRIN SQ SCH (10:18)
[2022-05-05] MEDS: CHOLECALCIFEROL (VIT D3) 1,000 UNIT (25 MCG) TABLET PO SCH (10:18)
[2022-05-05 10:19] LABS: BASO % 0.1 % (0-2.0); HEMOGLOBIN 9.7 GM/dL (11.7-16.9); LYMPH % 4.2 % (8-40); MCH 20.9 pg (25.7-33.7); MCHC 31.3 g/dl (32.0-35.9); MEAN PLT VOLUME 8.3 fl (7.5-11.1); MONO % 7.2 % (3.8-10.2); NEUT % 88.5 % (42.8-82.8); PLATELET COUNT 223 10^3/uL (134-434); RBC 4.63 M/mm3 (4.00-5.60); RDW 23.7 % (11.9-15.9); WHITE BLOOD COUNT 21.8 K/mm3 (4.0-10.0)
[2022-05-05] MEDS: ACETAMINOPHEN 1000 MG/100 ML BAG IVPB PRN ×2 (10:22→18:03)
[2022-05-05 10:48] LABS: CALCIUM 9.6 mg/dL (8.5-10.1)
[2022-05-05 10:49] LABS: ALBUMIN 2.7 g/dl (3.4-5.0)
[2022-05-05 10:51] LABS: CREATININE 0.9 mg/dL (0.55-1.3)
[2022-05-05 10:53] LABS: TOT PROT 6.3 g/dl (6.4-8.2)
[2022-05-05 11:26] LABS: ANISOCYTOSIS 2+; MACROCYTOSIS 0; OVALOCYTE 2+; TARGET CELLS 2+
[2022-05-05] MEDS ORDERED: SODIUM CHLORIDE 0.45% 1,000 ML IV SCH (16:15)
[2022-05-05] MEDS: LIDOCAINE PATCH REMOVAL MC SCH (22:45)
[2022-05-06] MEDS: ACETAMINOPHEN 1000 MG/100 ML BAG IVPB PRN (01:27)
[2022-05-06] MEDS: DOCUSATE SODIUM 100 MG CAPSULE (FP) PO SCH ×3 (06:33→22:21)
[2022-05-06] MEDS: LOSARTAN POTASSIUM 50 MG TABLET PO SCH (06:33)
[2022-05-06 09:34] LABS: ALBUMIN 2.6 g/dl (3.4-5.0); BLOOD UREA NITROGEN 60.7 mg/dL (7-18); CALCIUM 9.8 mg/dL (8.5-10.1)
[2022-05-06 09:39] LABS: BILIRUBIN,TOTAL 0.9 mg/dL (0.2-1)
[2022-05-06] MEDS: hydrALAZINE HCL 50 MG TABLET (FP) PO SCH ×2 (09:56→22:19)
[2022-05-06] MEDS: ENOXAPARIN NA (PORCINE) 40 MG/0.4 ML DISP.SYRIN SQ SCH (09:56)
[2022-05-06] MEDS: CEFTRIAXONE 1 GM in DEXTROSE 5%-WATER - 50 ML IVPB SCH (09:56)
[2022-05-06] MEDS: LIDOCAINE 5% TOPICAL PATCH TP SCH (09:56)
[2022-05-06] MEDS: CHOLECALCIFEROL (VIT D3) 1,000 UNIT (25 MCG) TABLET PO SCH (09:57)
[2022-05-06] MEDS: traMADol HCL 50 MG TABLET PO PRN (13:38)
[2022-05-06] MEDS ORDERED: DEXTROSE 5%-WATER - 1,000 ML with POTASSIUM CHLORIDE 20 MEQ IV SCH (15:00)
[2022-05-06] MEDS: POTASSIUM CHLORIDE 20 MEQ in DEXTROSE 5%-WATER - 1,000 ML IV SCH (16:01)
[2022-05-06 16:24] LABS: EPI CELLS >36 /uL (0-25.1); HYALINE CASTS 4 /uL (0-3.1); URINE APPEARANCE CLEAR; URINE BACTERIA 13 /uL (0-1359); URINE BILIRUBIN NEGATIVE (NEGATIVE); URINE COLOR YELLOW; URINE GLUCOSE (UA) NEGATIVE (NEGATIVE); URINE KETONE TRACE (NEGATIVE); URINE LEUK ESTERASE 2+ (NEGATIVE); URINE NITRITE NEGATIVE (NEGATIVE); URINE PROTEIN 1+ (NEGATIVE); URINE WBC 326 /uL (0-25.8)
[2022-05-06 16:58] LABS: URINE RBC 417.6 /uL (0-23.9)
[2022-05-06 16:59] LABS: YEAST NEGATIVE (NEGATIVE)
[2022-05-06] MEDS ORDERED: KETOROLAC TROMETHAMINE 15 MG/ML VIAL IVPUSH ONE (21:06)
[2022-05-06] MEDS ORDERED: TAMSULOSIN HCL 0.4 MG CAP PO ONE (21:09)
[2022-05-06] MEDS: LIDOCAINE PATCH REMOVAL MC SCH (22:21)
[2022-05-06] MEDS: QUEtiapine FUMARATE 25 MG TABLET PO SCH ×2 (22:21→22:28)
[2022-05-07] MEDS: KETOROLAC TROMETHAMINE 15 MG/ML VIAL IVPUSH PRN ×4 (03:43→22:42)
[2022-05-07] MEDS: POTASSIUM CHLORIDE 20 MEQ in DEXTROSE 5%-WATER - 1,000 ML IV SCH ×2 (03:43→06:33)
[2022-05-07] MEDS: LOSARTAN POTASSIUM 50 MG TABLET PO SCH (06:20)
[2022-05-07] MEDS: DOCUSATE SODIUM 100 MG CAPSULE (FP) PO SCH ×3 (06:20→22:30)
[2022-05-07 09:12] LABS: BASO % 0.3 % (0-2.0); EOS % 1.3 % (0-4.5); HEMATOCRIT 29.2 % (35.4-49); HEMOGLOBIN 9.4 GM/dL (11.7-16.9); LYMPH % 10.6 % (8-40); MCH 21.8 pg (25.7-33.7); MCHC 32.1 g/dl (32.0-35.9); MEAN CELL VOLUME 67.9 fl (80-96); MEAN PLT VOLUME 7.6 fl (7.5-11.1); MONO % 9.3 % (3.8-10.2); NEUT % 78.5 % (42.8-82.8); PLATELET COUNT 243 10^3/uL (134-434); RDW 24.1 % (11.9-15.9); WHITE BLOOD COUNT 15.1 K/mm3 (4.0-10.0)
[2022-05-07 09:38] LABS: CALCIUM 9.4 mg/dL (8.5-10.1)
[2022-05-07 09:39] LABS: ALBUMIN 2.4 g/dl (3.4-5.0); BLOOD UREA NITROGEN 59.1 mg/dL (7-18)
[2022-05-07 09:42] LABS: CREATININE 1.1 mg/dL (0.55-1.3)
[2022-05-07 09:43] LABS: BILIRUBIN,TOTAL 0.9 mg/dL (0.2-1); TOT PROT 5.7 g/dl (6.4-8.2)
[2022-05-07] MEDS ORDERED: cefTRIAXone SODIUM 1 GM VIAL ONE (10:54)
[2022-05-07] MEDS: LIDOCAINE 5% TOPICAL PATCH TP SCH (10:59)
[2022-05-07] MEDS: TAMSULOSIN HCL 0.4 MG CAP PO SCH (10:59)
[2022-05-07] MEDS: CEFTRIAXONE 1 GM in DEXTROSE 5%-WATER - 50 ML IVPB SCH (10:59)
[2022-05-07] MEDS: ENOXAPARIN NA (PORCINE) 40 MG/0.4 ML DISP.SYRIN SQ SCH (10:59)
[2022-05-07] MEDS: hydrALAZINE HCL 50 MG TABLET (FP) PO SCH ×2 (10:59→22:30)
[2022-05-07] MEDS: CHOLECALCIFEROL (VIT D3) 1,000 UNIT (25 MCG) TABLET PO SCH (10:59)
[2022-05-07] MEDS: DEXTROSE 5%-WATER - 1,000 ML IV SCH (14:12)
[2022-05-07] MEDS: traMADol HCL 50 MG TABLET PO PRN (18:24)
[2022-05-07] MEDS: QUEtiapine FUMARATE 25 MG TABLET PO SCH (22:30)
[2022-05-07] MEDS: LIDOCAINE PATCH REMOVAL MC SCH ×2 (22:31→22:49)
[2022-05-08] MEDS: DEXTROSE 5%-WATER - 1,000 ML IV SCH ×2 (03:31→13:42)
[2022-05-08] MEDS: traMADol HCL 50 MG TABLET PO PRN (03:36)
[2022-05-08] MEDS: DOCUSATE SODIUM 100 MG CAPSULE (FP) PO SCH ×2 (06:52→14:42)
[2022-05-08] MEDS: LOSARTAN POTASSIUM 50 MG TABLET PO SCH ×2 (06:57→06:58)
[2022-05-08] MEDS: TAMSULOSIN HCL 0.4 MG CAP PO SCH (08:37)
[2022-05-08] MEDS: ENOXAPARIN NA (PORCINE) 40 MG/0.4 ML DISP.SYRIN SQ SCH (10:35)
[2022-05-08] MEDS: CEFTRIAXONE 1 GM in DEXTROSE 5%-WATER - 50 ML IVPB SCH (10:35)
[2022-05-08] MEDS: hydrALAZINE HCL 50 MG TABLET (FP) PO SCH (10:36)
[2022-05-08] MEDS: CHOLECALCIFEROL (VIT D3) 1,000 UNIT (25 MCG) TABLET PO SCH (10:36)
[2022-05-08] MEDS: LIDOCAINE 5% TOPICAL PATCH TP SCH (10:36)
[2022-05-08 11:42] LABS: ALBUMIN 2.3 g/dl (3.4-5.0); BLOOD UREA NITROGEN 60.5 mg/dL (7-18); CALCIUM 8.9 mg/dL (8.5-10.1)
[2022-05-08 11:46] LABS: BILIRUBIN,TOTAL 0.7 mg/dL (0.2-1); TOT PROT 5.4 g/dl (6.4-8.2)
[2022-05-08 18:38] VITALS: BP 112/55; PULSE 86; RESP 20; TEMP 97.9
[2022-05-08 19:31] VITALS: BMI 26.5
== END 2022-05-08 18:50 | DRG 469 ==
LOC: JER 19:32 → JERBED 20:56 → J6S 05-01 01:01
PROVIDERS: ADMIT Internal Medicine; ATTEND Family Medicine
PROC: 0SRS0J9 Replacement of Left Hip Joint, Femoral Surface with Synthetic Substitute, Cemented, Open Approach (ICD-10-PCS; principal; 2022-05-01 15:00)
DX: S72.302A Unspecified fracture of shaft of left femur, initial encounter for closed fracture (principal); G93.41 Metabolic encephalopathy; E87.0 Hyperosmolality and hypernatremia; F05 Delirium due to known physiological condition; N39.0 Urinary tract infection, site not specified; N40.0 Benign prostatic hyperplasia without lower urinary tract symptoms; M81.0 Age-related osteoporosis without current pathological fracture; G20 Parkinson's disease; I11.0 Hypertensive heart disease with heart failure; I50.9 Heart failure, unspecified; F03.90 Unspecified dementia, unspecified severity, without behavioral disturbance, psychotic disturbance, mood disturbance, and anxiety; E83.39 Other disorders of phosphorus metabolism; Z88.0 Allergy status to penicillin; D64.9 Anemia, unspecified; R33.9 Retention of urine, unspecified; I44.0 Atrioventricular block, first degree; W18.39XA Other fall on same level, initial encounter; Y92.092 Bedroom in other non-institutional residence as the place of occurrence of the external cause
CPT/HCPCS: 36415; 70450-TC; 71045-TC-FY; 72125-TC; 72170-TC-FY; 73502-TC-LT-FY; 73552-TC-LT-FY; 73560-TC-LT-FY; 80048; 80053; 81003; 82272; 82550; 82728; 83540; 83550; 83735; 84100; 84443; 84466; 85025; 85027; 85045; 85610; 85730; 86850; 86900; 86901; 86922; 87040; 87086; 88305-TC; 88311-TC; 93005; 93010; 94760; 97116-GP; 97162-GP; 99285-25; C1889; C9803-CS; U0003; U0005

== ENCOUNTER 2022-05-12 21:25 | Inpatient (IN) | payer BC, OTHER ==
[2022-05-12 22:30] LABS: HEMATOCRIT 23.4 % (35.4-49); HEMOGLOBIN 7.4 GM/dL (11.7-16.9); MCH 21.6 pg (25.7-33.7); MCHC 31.5 g/dl (32.0-35.9); MEAN CELL VOLUME 68.4 fl (80-96); MEAN PLT VOLUME 7.5 fl (7.5-11.1); PLATELET COUNT 405 10^3/uL (134-434); RBC 3.41 M/mm3 (4.00-5.60); RDW 24.3 % (11.9-15.9); WHITE BLOOD COUNT 24.2 K/mm3 (4.0-10.0)
[2022-05-12 22:32] LABS: VENOUS O2 SATURATION 23.8 % (70-80); VENOUS PCO2 44.3 mmHg (38-52); VENOUS PH 7.345 (7.310-7.410)
[2022-05-12 22:44] LABS: INR 1.15 (0.83-1.09); PROTHROMBIN TIME (PATIENT) 13.2 SEC (9.7-13.0)
[2022-05-12] MEDS ORDERED: SODIUM CHLORIDE 500 ML IV STA (22:46)
[2022-05-12 22:47] LABS: ACTIVATED PTT 25.9 SECONDS (25.2-36.5)
[2022-05-12] MEDS ORDERED: VANCOMYCIN 1 GM in D5W (PRE-DOCKED) 1,000 MG/250 ML IVPB ONE (22:50)
[2022-05-12 22:57] LABS: ALBUMIN 2.4 g/dl (3.4-5.0); CALCIUM 9.4 mg/dL (8.5-10.1)
[2022-05-12 22:58] LABS: BLOOD UREA NITROGEN 70.1 mg/dL (7-18)
[2022-05-12] MEDS ORDERED: VANCOMYCIN/WATER FOR INJ (PEG) 1,000 MG/200 ML BAG IVPB ONE (22:59)
[2022-05-12 23:00] LABS: CREATININE 1.3 mg/dL (0.55-1.3)
[2022-05-12 23:02] LABS: BILIRUBIN,TOTAL 0.3 mg/dL (0.2-1); TOT PROT 5.8 g/dl (6.4-8.2)
[2022-05-12 23:35] LABS: ANISOCYTOSIS 3+; MACROCYTOSIS 0; OVALOCYTE 1+; TARGET CELLS 1+
[2022-05-13] MEDS ORDERED: SODIUM CHLORIDE 500 ML IV STA (01:41)
[2022-05-13 02:10] LABS: EPI CELLS 28 /uL (0-25.1); HYALINE CASTS 7 /uL (0-3.1); URINE APPEARANCE CLEAR; URINE BACTERIA 22 /uL (0-1359); URINE BILIRUBIN NEGATIVE (NEGATIVE); URINE COLOR YELLOW; URINE GLUCOSE (UA) NEGATIVE (NEGATIVE); URINE KETONE NEGATIVE (NEGATIVE); URINE LEUK ESTERASE 2+ (NEGATIVE); URINE NITRITE NEGATIVE (NEGATIVE); URINE PROTEIN 1+ (NEGATIVE); URINE RBC 45 /uL (0-23.9); URINE UROBILINOGEN 0.2 mg/dL (0.2-1.0); URINE WBC 98 /uL (0-25.8)
[2022-05-13] MEDS ORDERED: SODIUM CHLORIDE 1,000 ML IV SCH (02:15)
[2022-05-13] MEDS ORDERED: CEFEPIME HCL/D5W 1 GM/50 ML BAG IVPB ONE (02:15)
[2022-05-13] MEDS ORDERED: CEFEPIME 1 GM/100 ML BAG IVPB ONE ×2 (02:24→05:22)
[2022-05-13] MEDS ORDERED: CEFEPIME 1 GM in DEXTROSE 5%-WATER - 50 ML IVPB ONE (02:30)
[2022-05-13] MEDS: DEXTROSE 5%-NORMAL SALINE 1,000 ML IV SCH (06:54)
[2022-05-13] MEDS ORDERED: FUROSEMIDE 40 MG/4 ML INJECTABLE VIAL IVPUSH ONE (07:03)
[2022-05-13] MEDS ORDERED: FUROSEMIDE 40 MG/4 ML INJECTABLE VIAL ONE (08:04)
[2022-05-13 08:06] LABS: YEAST MANY (NEGATIVE)
[2022-05-13] MEDS ORDERED: VANCOMYCIN 750 MG PREMIX BAG (RESTRICTED TO ID ONLY) IVPB SCH (10:00)
[2022-05-13] MEDS ORDERED: VANCOMYCIN/WATER FOR INJ (PEG) 750 MG/150 ML BAG IVPB SCH (10:00)
[2022-05-13] MEDS ORDERED: TAMSULOSIN HCL 0.4 MG CAP ONE (13:08)
[2022-05-13] MEDS ORDERED: MULTIVITAMINS (DAILY MVI) TABLET (FP) ONE (13:09)
[2022-05-13] MEDS ORDERED: CARBIDOPA/LEVODOPA 25/100 TABLET (FP) ONE (13:09)
[2022-05-13] MEDS: MULTIVITAMINS (DAILY MVI) TABLET (FP) PO SCH (13:27)
[2022-05-13] MEDS: TAMSULOSIN HCL 0.4 MG CAP PO SCH (13:27)
[2022-05-13] MEDS ORDERED: CEFEPIME 2 GM in DEXTROSE 5%-WATER 100 ML IVPB SCH (14:00)
[2022-05-13 15:20] LABS: HEMATOCRIT 23.2 % (35.4-49); HEMOGLOBIN 7.2 GM/dL (11.7-16.9); MCH 21.5 pg (25.7-33.7); MCHC 30.8 g/dl (32.0-35.9); MEAN CELL VOLUME 69.6 fl (80-96); MEAN PLT VOLUME 7.5 fl (7.5-11.1); PLATELET COUNT 390 10^3/uL (134-434); RBC 3.33 M/mm3 (4.00-5.60); RDW 24.5 % (11.9-15.9)
[2022-05-13 15:52] LABS: ANISOCYTOSIS 3+; MACROCYTOSIS 1+
[2022-05-13 15:54] LABS: CALCIUM 9.5 mg/dL (8.5-10.1)
[2022-05-13 15:55] LABS: BLOOD UREA NITROGEN 59.4 mg/dL (7-18)
[2022-05-13 15:56] LABS: MAGNESIUM 2.4 mg/dL (1.8-2.4)
[2022-05-13 15:58] LABS: PHOSPHOROUS 2.7 mg/dL (2.5-4.9)
[2022-05-13] MEDS: CEFEPIME 1 GM in DEXTROSE 5%-WATER 100 ML IVPB SCH ×2 (17:41→21:40)
[2022-05-13 19:51] LABS: ALBUMIN 2.5 g/dl (3.4-5.0)
[2022-05-13 19:53] LABS: BILIRUBIN,DIRECT 0.2 mg/dL (0.0-0.2)
[2022-05-13 19:54] LABS: TOT PROT 5.7 g/dl (6.4-8.2)
[2022-05-13 19:55] LABS: BILIRUBIN,TOTAL 0.5 mg/dL (0.2-1)
[2022-05-13] MEDS: POLYETHYLENE GLYCOL (HEALTHYLAX) 3350 17 GM PACKET PO SCH (21:41)
[2022-05-13] MEDS: QUEtiapine FUMARATE 25 MG TABLET PO SCH (21:41)
[2022-05-14] MEDS: DEXTROSE 5%-NORMAL SALINE 1,000 ML IV SCH (10:30)
[2022-05-14] MEDS: PANTOPRAZOLE 40 MG TABLET PO SCH (10:31)
[2022-05-14] MEDS: CEFEPIME 1 GM in DEXTROSE 5%-WATER 100 ML IVPB SCH ×2 (10:31→23:02)
[2022-05-14] MEDS: MULTIVITAMINS (DAILY MVI) TABLET (FP) PO SCH (10:31)
[2022-05-14] MEDS: TAMSULOSIN HCL 0.4 MG CAP PO SCH (10:32)
[2022-05-14] MEDS: POLYETHYLENE GLYCOL (HEALTHYLAX) 3350 17 GM PACKET PO SCH ×2 (11:45→23:01)
[2022-05-14] MEDS ORDERED: DEXTROSE 5%-WATER - 1,000 ML with POTASSIUM CHLORIDE 10 MEQ IV SCH (12:30)
[2022-05-14] MEDS ORDERED: POTASSIUM CHLORIDE 10 MEQ in DEXTROSE 5%-WATER - 1,000 ML IV SCH (14:59)
[2022-05-14] MEDS: QUEtiapine FUMARATE 25 MG TABLET PO SCH (23:02)
[2022-05-15] MEDS: POLYETHYLENE GLYCOL (HEALTHYLAX) 3350 17 GM PACKET PO SCH ×2 (09:26→22:03)
[2022-05-15] MEDS: MULTIVITAMINS (DAILY MVI) TABLET (FP) PO SCH (09:26)
[2022-05-15] MEDS: TAMSULOSIN HCL 0.4 MG CAP PO SCH (09:26)
[2022-05-15] MEDS: PANTOPRAZOLE 40 MG TABLET PO SCH (09:26)
[2022-05-15] MEDS: CEFEPIME 1 GM in DEXTROSE 5%-WATER 100 ML IVPB SCH ×2 (09:52→22:03)
[2022-05-15 11:09] LABS: HEMATOCRIT 19.4 % (35.4-49); MCH 20.9 pg (25.7-33.7); MEAN CELL VOLUME 69.6 fl (80-96); MEAN PLT VOLUME 7.2 fl (7.5-11.1); PLATELET COUNT 356 10^3/uL (134-434); RBC 2.78 M/mm3 (4.00-5.60); RDW 23.8 % (11.9-15.9); WHITE BLOOD COUNT 22.5 K/mm3 (4.0-10.0)
[2022-05-15 11:18] LABS: HEMOGLOBIN 5.8 GM/dL (11.7-16.9)
[2022-05-15 11:43] LABS: ALBUMIN 2.1 g/dl (3.4-5.0); BLOOD UREA NITROGEN 33.3 mg/dL (7-18); CALCIUM 9.1 mg/dL (8.5-10.1)
[2022-05-15 11:45] LABS: BILIRUBIN,TOTAL 0.6 mg/dL (0.2-1); TOT PROT 4.9 g/dl (6.4-8.2)
[2022-05-15] MEDS ORDERED: POTASSIUM CHLORIDE 10 MEQ in DEXTROSE 5%-WATER - 1,000 ML IV SCH (14:16)
[2022-05-15] MEDS: QUEtiapine FUMARATE 25 MG TABLET PO SCH (22:03)
[2022-05-16] MEDS: TAMSULOSIN HCL 0.4 MG CAP PO SCH (09:21)
[2022-05-16] MEDS: MULTIVITAMINS (DAILY MVI) TABLET (FP) PO SCH (09:21)
[2022-05-16] MEDS: PANTOPRAZOLE 40 MG TABLET PO SCH (09:21)
[2022-05-16] MEDS: POLYETHYLENE GLYCOL (HEALTHYLAX) 3350 17 GM PACKET PO SCH ×2 (09:22→21:18)
[2022-05-16] MEDS: CEFEPIME 1 GM in DEXTROSE 5%-WATER 100 ML IVPB SCH (09:22)
[2022-05-16] MEDS: traMADol HCL 50 MG TABLET PO PRN (09:22)
[2022-05-16 11:56] LABS: HEMATOCRIT 26.8 % (35.4-49); HEMOGLOBIN 8.6 GM/dL (11.7-16.9); MCH 23.7 pg (25.7-33.7); MCHC 32.3 g/dl (32.0-35.9); MEAN CELL VOLUME 73.6 fl (80-96); MEAN PLT VOLUME 7.5 fl (7.5-11.1); PLATELET COUNT 306 10^3/uL (134-434); RBC 3.64 M/mm3 (4.00-5.60); RDW 23.9 % (11.9-15.9); WHITE BLOOD COUNT 22.5 K/mm3 (4.0-10.0)
[2022-05-16 13:05] LABS: CALCIUM 8.5 mg/dL (8.5-10.1)
[2022-05-16 13:06] LABS: BLOOD UREA NITROGEN 26.5 mg/dL (7-18)
[2022-05-16 13:09] LABS: CREATININE 0.9 mg/dL (0.55-1.3)
[2022-05-16] MEDS: POTASSIUM CHLORIDE 10 MEQ in DEXTROSE 5%-WATER - 1,000 ML IV SCH (16:15)
[2022-05-16] MEDS ORDERED: IRON SUCROSE INJECTION 200 MG in SODIUM CHLORIDE 90 ML IVPB ONE (17:15)
[2022-05-16] MEDS: QUEtiapine FUMARATE 25 MG TABLET PO SCH (21:18)
[2022-05-17] MEDS: POTASSIUM CHLORIDE 10 MEQ in DEXTROSE 5%-WATER - 1,000 ML IV SCH ×3 (02:48→20:20)
[2022-05-17] MEDS: TAMSULOSIN HCL 0.4 MG CAP PO SCH (08:16)
[2022-05-17] MEDS: PANTOPRAZOLE 40 MG TABLET PO SCH (09:16)
[2022-05-17] MEDS: MULTIVITAMINS (DAILY MVI) TABLET (FP) PO SCH (09:16)
[2022-05-17] MEDS: POLYETHYLENE GLYCOL (HEALTHYLAX) 3350 17 GM PACKET PO SCH ×2 (09:16→22:13)
[2022-05-17] MEDS: QUEtiapine FUMARATE 25 MG TABLET PO SCH (22:13)
[2022-05-18] MEDS: POTASSIUM CHLORIDE 10 MEQ in DEXTROSE 5%-WATER - 1,000 ML IV SCH ×3 (02:15→20:02)
[2022-05-18] MEDS: TAMSULOSIN HCL 0.4 MG CAP PO SCH (08:46)
[2022-05-18] MEDS: MULTIVITAMINS (DAILY MVI) TABLET (FP) PO SCH (09:00)
[2022-05-18] MEDS: PANTOPRAZOLE 40 MG TABLET PO SCH (09:00)
[2022-05-18] MEDS: POLYETHYLENE GLYCOL (HEALTHYLAX) 3350 17 GM PACKET PO SCH ×2 (09:00→22:09)
[2022-05-18 10:30] LABS: HEMATOCRIT 29.9 % (35.4-49); HEMOGLOBIN 9.8 GM/dL (11.7-16.9); MCH 24.4 pg (25.7-33.7); MCHC 32.8 g/dl (32.0-35.9); MEAN CELL VOLUME 74.4 fl (80-96); MEAN PLT VOLUME 7.7 fl (7.5-11.1); PLATELET COUNT 248 10^3/uL (134-434); RBC 4.01 M/mm3 (4.00-5.60); RDW 25.9 % (11.9-15.9); WHITE BLOOD COUNT 19.7 K/mm3 (4.0-10.0)
[2022-05-18 10:49] LABS: CALCIUM 8.9 mg/dL (8.5-10.1)
[2022-05-18 10:50] LABS: BLOOD UREA NITROGEN 16.4 mg/dL (7-18)
[2022-05-18 10:53] LABS: CREATININE 0.8 mg/dL (0.55-1.3)
[2022-05-18 14:17] VITALS: BMI 27.1
[2022-05-18] MEDS ORDERED: IRON SUCROSE INJECTION 200 MG in SODIUM CHLORIDE 90 ML IVPB ONE (17:30)
[2022-05-18] MEDS: MINERAL OIL/PETROLATUM,WHITE 3.5 GM TUBE OS SCH (22:08)
[2022-05-18] MEDS: NEOMY SULF/BACITRAC ZN/POLY/HC OPHTHALMIC OINTMENT 3.5 GM TUBE OD SCH (22:08)
[2022-05-18] MEDS: QUEtiapine FUMARATE 25 MG TABLET PO SCH (22:09)
[2022-05-19] MEDS: POTASSIUM CHLORIDE 10 MEQ in DEXTROSE 5%-WATER - 1,000 ML IV SCH ×3 (00:45→23:08)
[2022-05-19] MEDS: MULTIVITAMINS (DAILY MVI) TABLET (FP) PO SCH (10:07)
[2022-05-19] MEDS: POLYETHYLENE GLYCOL (HEALTHYLAX) 3350 17 GM PACKET PO SCH ×2 (10:07→22:07)
[2022-05-19] MEDS: PANTOPRAZOLE 40 MG TABLET PO SCH (10:07)
[2022-05-19] MEDS: TAMSULOSIN HCL 0.4 MG CAP PO SCH (10:07)
[2022-05-19] MEDS: NEOMY SULF/BACITRAC ZN/POLY/HC OPHTHALMIC OINTMENT 3.5 GM TUBE OD SCH ×2 (10:08→22:07)
[2022-05-19] MEDS: MINERAL OIL/PETROLATUM,WHITE 3.5 GM TUBE OS SCH (22:06)
[2022-05-19] MEDS: QUEtiapine FUMARATE 25 MG TABLET PO SCH (22:07)
[2022-05-20] MEDS: POTASSIUM CHLORIDE 10 MEQ in DEXTROSE 5%-WATER - 1,000 ML IV SCH ×2 (06:57→10:47)
[2022-05-20] MEDS: TAMSULOSIN HCL 0.4 MG CAP PO SCH (09:26)
[2022-05-20] MEDS: PANTOPRAZOLE 40 MG TABLET PO SCH (09:27)
[2022-05-20] MEDS: POLYETHYLENE GLYCOL (HEALTHYLAX) 3350 17 GM PACKET PO SCH ×3 (09:27→22:36)
[2022-05-20] MEDS: MULTIVITAMINS (DAILY MVI) TABLET (FP) PO SCH (09:27)
[2022-05-20] MEDS: NEOMY SULF/BACITRAC ZN/POLY/HC OPHTHALMIC OINTMENT 3.5 GM TUBE OD SCH ×2 (09:28→22:36)
[2022-05-20] MEDS: traMADol HCL 50 MG TABLET PO PRN (09:33)
[2022-05-20 10:42] LABS: BASO % 0.6 % (0-2.0); EOS % 3.1 % (0-4.5); HEMATOCRIT 31.8 % (35.4-49); HEMOGLOBIN 9.8 GM/dL (11.7-16.9); LYMPH % 12.9 % (8-40); MCH 23.1 pg (25.7-33.7); MCHC 30.7 g/dl (32.0-35.9); MEAN CELL VOLUME 75.3 fl (80-96); MEAN PLT VOLUME 7.7 fl (7.5-11.1); MONO % 7.9 % (3.8-10.2); NEUT % 75.5 % (42.8-82.8); PLATELET COUNT 207 10^3/uL (134-434); RBC 4.23 M/mm3 (4.00-5.60); RDW 25.5 % (11.9-15.9); WHITE BLOOD COUNT 17.1 K/mm3 (4.0-10.0)
[2022-05-20 11:09] LABS: CALCIUM 9.1 mg/dL (8.5-10.1)
[2022-05-20 11:10] LABS: ALBUMIN 2.2 g/dl (3.4-5.0); BLOOD UREA NITROGEN 17.9 mg/dL (7-18); MAGNESIUM 2.1 mg/dL (1.8-2.4)
[2022-05-20 11:12] LABS: CREATININE 0.8 mg/dL (0.55-1.3)
[2022-05-20 11:14] LABS: BILIRUBIN,TOTAL 0.9 mg/dL (0.2-1); TOT PROT 5.4 g/dl (6.4-8.2)
[2022-05-20] MEDS ORDERED: DEXTROSE 5%-WATER - 1,000 ML IV SCH ×3 (11:16→12:15)
[2022-05-20 11:52] LABS: ANISOCYTOSIS 3+; MACROCYTOSIS 0; OVALOCYTE 1+
[2022-05-20] MEDS ORDERED: DEXTROSE 5%-WATER - 1,000 ML IV ONE (12:15)
[2022-05-20] MEDS: BACITRACIN 15 GM TUBE TOPICAL OINTMENT TP SCH (12:57)
[2022-05-20] MEDS: MINERAL OIL/PETROLATUM,WHITE 3.5 GM TUBE OS SCH (22:32)
[2022-05-20] MEDS: QUEtiapine FUMARATE 25 MG TABLET PO SCH (22:36)
[2022-05-21 08:27] LABS: HEMATOCRIT 29.1 % (35.4-49); MCHC 31.1 g/dl (32.0-35.9); MEAN CELL VOLUME 73.8 fl (80-96); MEAN PLT VOLUME 7.9 fl (7.5-11.1); PLATELET COUNT 213 10^3/uL (134-434); RBC 3.94 M/mm3 (4.00-5.60); RDW 24.8 % (11.9-15.9); WHITE BLOOD COUNT 14.6 K/mm3 (4.0-10.0)
[2022-05-21 08:54] LABS: BLOOD UREA NITROGEN 21.7 mg/dL (7-18)
[2022-05-21 08:56] LABS: BILIRUBIN,TOTAL 0.8 mg/dL (0.2-1)
[2022-05-21 08:57] LABS: CREATININE 0.9 mg/dL (0.55-1.3); TOT PROT 5.2 g/dl (6.4-8.2)
[2022-05-21] MEDS: PANTOPRAZOLE 40 MG TABLET PO SCH (09:25)
[2022-05-21] MEDS: TAMSULOSIN HCL 0.4 MG CAP PO SCH (09:25)
[2022-05-21] MEDS: traMADol HCL 50 MG TABLET PO PRN (09:25)
[2022-05-21] MEDS: FUROSEMIDE 40 MG/4 ML INJECTABLE VIAL IVPUSH SCH (09:28)
[2022-05-21] MEDS: MULTIVITAMINS (DAILY MVI) TABLET (FP) PO SCH (09:29)
[2022-05-21] MEDS: NEOMY SULF/BACITRAC ZN/POLY/HC OPHTHALMIC OINTMENT 3.5 GM TUBE OD SCH ×2 (09:29→21:57)
[2022-05-21] MEDS: POLYETHYLENE GLYCOL (HEALTHYLAX) 3350 17 GM PACKET PO SCH ×2 (09:29→21:57)
[2022-05-21] MEDS: BACITRACIN 15 GM TUBE TOPICAL OINTMENT TP SCH (09:29)
[2022-05-21] MEDS: QUEtiapine FUMARATE 25 MG TABLET PO SCH (21:54)
[2022-05-21] MEDS: MINERAL OIL/PETROLATUM,WHITE 3.5 GM TUBE OS SCH (21:56)
[2022-05-22] MEDS: FUROSEMIDE 40 MG/4 ML INJECTABLE VIAL IVPUSH SCH (09:29)
[2022-05-22 09:43] VITALS: BP 124/49; PULSE 78; RESP 18; TEMP 97.7
[2022-05-22] MEDS: MULTIVITAMINS (DAILY MVI) TABLET (FP) PO SCH (09:56)
[2022-05-22] MEDS: POLYETHYLENE GLYCOL (HEALTHYLAX) 3350 17 GM PACKET PO SCH (09:56)
[2022-05-22] MEDS: TAMSULOSIN HCL 0.4 MG CAP PO SCH (09:56)
[2022-05-22] MEDS: PANTOPRAZOLE 40 MG TABLET PO SCH (09:56)
[2022-05-22] MEDS: NEOMY SULF/BACITRAC ZN/POLY/HC OPHTHALMIC OINTMENT 3.5 GM TUBE OD SCH (09:56)
[2022-05-22] MEDS: BACITRACIN 15 GM TUBE TOPICAL OINTMENT TP SCH (09:56)
[2022-05-22] MEDS: traMADol HCL 50 MG TABLET PO PRN (10:00)
[2022-05-22 10:11] LABS: CALCIUM 9.2 mg/dL (8.5-10.1)
[2022-05-22 10:12] LABS: ALBUMIN 2.1 g/dl (3.4-5.0); BLOOD UREA NITROGEN 29.1 mg/dL (7-18)
[2022-05-22 10:15] LABS: CREATININE 0.8 mg/dL (0.55-1.3)
[2022-05-22 10:17] LABS: TOT PROT 5.2 g/dl (6.4-8.2)
[2022-05-22 10:24] LABS: BILIRUBIN,TOTAL 0.8 mg/dL (0.2-1)
== END 2022-05-22 14:53 | DRG 871 ==
LOC: JER 21:25 → JERBED 05-13 02:07 → J8W 05-13 15:56
PROVIDERS: ADMIT Internal Medicine; ATTEND Family Medicine
PROC: 30233N1 Transfusion of Nonautologous Red Blood Cells into Peripheral Vein, Percutaneous Approach (ICD-10-PCS; principal; 2022-05-15)
DX: A41.89 Other specified sepsis (principal); G93.41 Metabolic encephalopathy; E87.0 Hyperosmolality and hypernatremia; N17.9 Acute kidney failure, unspecified; N39.0 Urinary tract infection, site not specified; D64.9 Anemia, unspecified; R33.9 Retention of urine, unspecified; G20 Parkinson's disease; F03.90 Unspecified dementia, unspecified severity, without behavioral disturbance, psychotic disturbance, mood disturbance, and anxiety; I11.0 Hypertensive heart disease with heart failure; I50.9 Heart failure, unspecified; N40.0 Benign prostatic hyperplasia without lower urinary tract symptoms; M85.88 Other specified disorders of bone density and structure, other site; Z88.0 Allergy status to penicillin; D72.829 Elevated white blood cell count, unspecified; R50.9 Fever, unspecified; N32.9 Bladder disorder, unspecified; M81.0 Age-related osteoporosis without current pathological fracture; Z71.89 Other specified counseling
CPT/HCPCS: 0241U-QW; 36415; 36430; 71045-TC-FY; 74018-TC-FY; 74177-TC; 80048; 80053; 80076; 81003; 82272; 82607; 82728; 82746; 82803; 83540; 83550; 83605; 83735; 83880; 84100; 84484; 85025; 85027; 85610; 85730; 86850; 86900; 86901; 86922; 87040; 87077; 87086; 93005; 93010; 97116-GP; 97161-GP; 99285-25; C9803-CS; J1756; P9058; Q9967; U0003; U0005